=== PATIENT | female | born 1980 | race Two or more races ===

== ENCOUNTER 2022-07-31 06:35 | Emergency (ER) | payer MEDICAID ==
[~2022-07-31] VITALS: Ht 165.1 cm; Wt 91.0 kg
[2022-07-31 06:39] VITALS: BP 109/85
[2022-07-31] MEDS ORDERED: ACETAMINOPHEN 325MG TABLET PO ONE (07:15)
[2022-07-31 08:32] LABS: BASOPHILS % 0.3 % (0.0-2.0); EOSINOPHILS % 1.5 % (0.0-5.0); HEMATOCRIT. 28.2 % (36.0-48.0); HEMOGLOBIN. 8.5 g/dL (12.0-16.0); LYMPHOCYTES % 20.9 % (20.0-50.0); MEAN CORPUSCULAR VOLUME 56.4 fL (81.0-99.0); MEAN PLATELET VOLUME 9.1 fl (7.4-10.4); MONOCYTES % 11.6 % (2.0-8.0); NEUTROPHILS % 65.7 % (40.0-76.0); PLATELET 389 x1000/uL (130-400); RED CELL DISTRIBUTION WIDTH 20.9 % (11.6-14.6)
[2022-07-31 08:40] LABS: CHLORIDE 107 mEq/L (98-107)
[2022-07-31 08:52] LABS: HCG SCREEN NEGATIVE
[2022-07-31] MEDS ORDERED: TOPUD PO (09:03)
[2022-07-31 09:09] LABS: PLATELET ESTIMATE NORMAL
== END 2022-07-31 09:40 | disposition home or self-care (01) ==
LOC: ER 06:35
DX: M79.605 Pain in left leg (principal)
CPT/HCPCS: 36415; 71045; 73590; 74176; 80053; 84484; 84703; 85025; 99285; Z7610